=== PATIENT | female | born 1945 | race Caucasian/White ===

== ENCOUNTER 2024-05-10 05:48 | Day surgery (SDC) | payer MEDICARE, OTHER ==
[2024-05-04 10:31] VITALS: BP 128/69
[~2024-05-10] VITALS: Ht 172.7 cm; Wt 60.0 kg
[~2024-05-10 05:48] MED LIST: K2 PLUS D3 TAB1 EACH PO; KLAYESTA15 GM TOP; LACTATED RINGER'S 1,000 ML IV SCH; LEVOTHYROXINE75 MCG PO; LORAZEPAM0.5 MG PO; NYSTATIN15 GM TOP; SENOKOT8.6 MG PO; TRAZODONE HCL50 MG PO
[2024-05-10 06:00] VITALS: BP 141/76
[2024-05-10] MEDS ORDERED: BUPIVACAINE HCL 0.25% 50 ML MDV ONE (06:47)
[2024-05-10] MEDS ORDERED: IBLOOD GLUCOSE TEST STRIP 1 EA TEST VI PRN ×2 (07:00→07:45)
[2024-05-10] MEDS ORDERED: CEFAZOLIN SODIUM 2 GM/20 ML SYR IV SCH (07:00)
[2024-05-10] MEDS ORDERED: LIDOCAINE HCL 1% 5 ML SDV INJ ONE (07:00)
[2024-05-10] MEDS ORDERED: HEParin SOD (PORCINE) 5,000 UNIT/ML SDV SUB-Q SCH (07:00)
[2024-05-10] MEDS ORDERED: fentaNYL citrate 100 MCG/2 ML VIAL ONE (07:24)
[2024-05-10] MEDS ORDERED: propofoL 200 MG/20 ML VIAL ONE (07:24)
[2024-05-10] MEDS ORDERED: LIDOCAINE HCL 2% 5 ML SDV ONE (07:24)
[2024-05-10] MEDS ORDERED: ondansetron HCL 4 MG/2 ML VIAL ONE (07:24)
[2024-05-10] MEDS ORDERED: fentaNYL citrate 50 MCG/ML SDV IV PRN (07:45)
[2024-05-10] MEDS ORDERED: ondansetron HCL 4 MG/2 ML VIAL IV PRN (07:45)
[2024-05-10] MEDS ORDERED: NALOXONE HCL 0.4 MG SYR IV PRN ×2 (07:45→08:45)
--- NOTE | 2024-05-10 08:43 | NUR ---
05/10/24 0843 Amy Wahl 0822 PT ARRIVED TO PACU ON 6L VIA MASK, RESP EVEN AND UNLABORED. 0839 PT WOKE AND SAT UP IN BED, RN REORIENTING PT TO PACU. O2 MASK REMOVED. PT DENIES PAIN AND NAUSEA. PT MOVING LEG AND REPROT FULL FEELING IN LEFT FOOT AND LEG BUT NO PAIN.
[2024-05-10] MEDS ORDERED: ACETAMINOPHEN 500 MG TAB PO PRN (08:45)
[2024-05-10] MEDS ORDERED: HYDROCODONE/ACETA 5/325 TAB PO PRN (08:45)
[2024-05-10] MEDS ORDERED: IBUPROFEN 600 MG TAB PO PRN (08:45)
[2024-05-10] MEDS ORDERED: LACTATED RINGER'S 1,000 ML IV SCH (08:45)
[2024-05-10] MEDS ORDERED: HYDROCODON-ACE1 EA10 PO (08:50)
[2024-05-10] MEDS ORDERED: ACETAMINOPHEN500 MG PO (08:50)
[2024-05-10 09:19] VITALS: BP 116/98
--- NOTE | 2024-05-10 09:29 | NUR ---
Patient returns to room 11 from PACU. Report taken from DAVID Reyes. Patient is awake and talking. She is reporting 5/10 pain to the surgical site. Denies any nausea/vomiting at this time. Water and pudding provided to patient. Vital signs obtained. Pedal pulse strong to left foot. I went over the expectations for the next hour and both the patient and her daughter expressed understanding. Dressing in place to left lower leg. Call light within reach, bed in lowest position. NO needs stated at this time
--- NOTE | 2024-05-10 09:42 | NUR ---
0942-PT RATES PAIN 5/10. PAIN MEDICATION GIVEN PER EMAR.
--- NOTE | 2024-05-10 10:31 | NUR ---
LE 1031-PT RATES PAIN 08/09. PAIN MEDICATION GIVEN PER EMAR. LE 1033-PT LAYING IN BED WATCHING TV. RESP EVEN AND UNLABORED. PT IS DRINKING WATER. DAUGHTER AT BEDSIDE. CALL LIGHT WITHIN REACH. LE 1039-VO PER DR. LEWIS FOR IV TYLENOL. LE 1055-PAIN MEDICATION GIVEN PER EMAR.
[2024-05-10 10:32] VITALS: BP 129/57
[2024-05-10] MEDS ORDERED: ACETAMINOPHEN 1,000 MG/100 ML VIAL IV ONE (10:45)
[2024-05-10 11:12] VITALS: BP 133/82
[2024-05-10] MEDS ORDERED: SEVOFLURANE 250 ML BTL INH ONE (11:13)
--- NOTE | 2024-05-10 11:30 | NUR ---
1125- Patient is dressed at this time. Discharge instructions were reviewed in detail with both the patient and her daughter Betty. All questions were answered and they both expressed understanding of all instructions. Patient was discharged via wheelchair where her daughter is to take her home.
--- NOTE | 2024-05-10 13:16 | OR ---
[facility] [address] [place], [place] [address] Signed DATE OF OPERATION: 05/10/2024 SURGEON: Essie Lewis MD PREOPERATIVE DIAGNOSES: 1. 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 2. Frailty. 3. Dementia. POSTOPERATIVE DIAGNOSES: 1. 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 2. Frailty. 3. Dementia. PROCEDURE: Excision of left lower leg squamous cell carcinoma, 9 cm x 4 cm with primary closure. ANESTHESIA: General LMA; Maxine Mustafa CRNA INDICATIONS FOR THE PROCEDURE: This 78-year-old white woman is a patient of Dr. Lechuga and is noted to have a biopsy-proven left lower extremity squamous cell carcinoma of the anterior smith area. She has had progressive dementia, now living in [facility] and generally getting along well otherwise. She underwent lesion biopsy by Dr. Ruiz confirming squamous cell carcinoma, well differentiated with cells extending to the deep surgical margin. Resection has been recommended. The risk of bleeding, infection, need for allowed for closure including skin grafting and so forth have been reviewed with the patient and her daughter. They understand this, they wished to proceed. FINDINGS: An incrusted exuberant central necrotic area associated with the lesion was noted. There is scaly erythema at the base of the lesion that extended medially. Uncertain as to the true negative margin. Wide resection was undertaken within the limits of probable successful primary closure. Closure was undertaken with interrupted suture allowing for viability of both medial and lateral flap areas. Final pathology is pending of course. DESCRIPTION OF PROCEDURE: The patient was brought to the operating room, given a general LMA type anesthetic. Electronically Signed By: ESSIE LEWIS MD 05/10/24 1316 PATIENT NAME: MANNY PALACIOS OPERATIVE REPORT DATE OF : 41 REPORT #: [id number] PHYSICIAN: ESSIE LEWIS MD PCP: NICK LECHUGA MD REPORT IS CONFIDENTIAL AND NOT TO BE RELEASED WITHOUT AUTHORIZATION [facility] [address], [place] [address] Signed Preoperative antibiotic Ancef was given. Lower extremity was prepared with a chlorhexidine solution and draped sterilely. The area in question was marked. The lesion which had encrusting material 2 cm in length was associated with scaly erythema at the base. A long resection oriented vertically to allow incorporation of medial and lateral erythematous tissue was designed. Elliptical incision was undertaken dissection full thickness through the skin noting the anterior tibial bone. Resection was completed in the medial aspect with electrocautery. Hemostasis was assured with electrocautery. Sequential closure of the wound was undertaken with interrupted 2-0 nylon in a horizontal mattress configuration. The central portion had the most tension though did allow for reapproximation of the skin edges. The skin in this area was friable, though appears to be viable. An Acticoat dressing was applied as was an Edwardo wrap. The patient was extubated and transferred to the recovery room in good condition. The excision specimen was 9 cm in length and 4 cm in width. MD CIERA Rodrigues/THOM /[id number] cc: Dr. Carlton Ruiz Copies: ~ Electronically Signed By: ESSIE LEWIS MD 05/10/24 1316 PATIENT NAME: MANNY PALACIOS OPERATIVE REPORT DATE OF : 41 REPORT #: [id number] PHYSICIAN: ESSIE LEWIS MD PCP: NICK LECHUGA MD REPORT IS CONFIDENTIAL AND NOT TO BE RELEASED WITHOUT AUTHORIZATION
--- NOTE | 2024-05-10 13:36 | NUR ---
1114-PT STATES PAIN IS MUCH BETTER. PT IS READY TO GO HOME. PT WILL GET DRESSED WTIH DAUGHTER IN ROOM. CALL LIGHT WITHIN REACH.
--- NOTE | 2024-05-13 16:19 | PATH ---
[facility] [address] [place], [place] [address] Signed SPECIMEN(S): A LEFT MID ANTERIOR LOWER EXTREMITY SPECIMEN SOURCE: A. LEFT MID ANTERIOR LOWER EXTREMITY CLINICAL HISTORY: Squamous cell carcinoma FINAL PATHOLOGIC DIAGNOSIS: Left mid anterior lower extremity, skin, excision: - Invasive well-differentiated squamous cell carcinoma. - Tumor dimension: 3.1 x 2.1 cm. - Depth of tumor invasion: Approximately 4 mm. - Deep surgical margins: Free of tumor. - Peripheral surgical margins: Free of invasive tumor. JVR:jake MICROSCOPIC EXAMINATION: Histologic sections of all submitted blocks are examined by light microscopy. These findings, together with the gross examination, support the pathologic diagnosis. GROSS DESCRIPTION: The specimen, labeled and designated "Tammy Palacios, left mid anterior lower extremity squamous cell carcinoma per requisition," is received in formalin and consists of a 7 x 3.4 cm portion of skin excised to depth of 0.2 cm. The specimen is oriented as follows: Short stitchsuperior (subsequently designated 12:00), long stitchlateral (subsequently designated 3:00), the specimen is gallardo with a 3.1 x 2.1 cm scabbed lesion that is 0.6 cm away from the 3:00 margin, 0.9 cm away from the 9:00 margin and greater than 2 cm away from the 12 and 6:00 margin. There is a linear 2.3 cm skin deficit extending from the lesion to the 12:00 aspect. The specimen is subsequently inked as follows: 12-3 o'clock blue, 3-6 o'clock orange, 6-9-12 o'clock black. The specimen is serially section revealing no additional lesions. Specimen is entirely submitted as follows: Cassette Summary: (A1) distal tips (A2) 12:00 half (A3-A5) lesion (A6-A7) 6:00 half PATIENT NAME: MANNY PALACIOS PATHOLOGY DATE OF : 41 REPORT #: [id number] PHYSICIAN: DAVIAN PATHOLOGY PCP: NICK LECHUGA MD REPORT IS CONFIDENTIAL AND NOT TO BE RELEASED WITHOUT AUTHORIZATION [facility] [address] [place] [id number] Signed AA (under the direct supervision of a pathologist) The Gross Description was prepared using a voice recognition system. The report was reviewed for accuracy; however, sound-alike word errors, addition and/or deletions may occur. If there is any question about this report, please contact Client Services. PERFORMING LABORATORY: Technical component was performed by [facility], [address] [place] [id number] (CLIA# [id number]). Professional interpretation was performed by [facility] - [facility], [address] [place] [id number] (CLIA#: [id number]). Diagnostician: Portillo Jensen MD Pathologist Electronically Signed 05/13/2024 Copies: ~ PATIENT NAME: MANNY PALACIOS PATHOLOGY DATE OF : 41 REPORT #: [id number] PHYSICIAN: DAVIAN GALAVIZ PCP: NICK LECHUGA MD REPORT IS CONFIDENTIAL AND NOT TO BE RELEASED WITHOUT AUTHORIZATION
== END 2024-05-10 11:30 | disposition home or self-care (01) ==
LOC: DS 05:48
PROVIDERS: ATTEND Surgery
PROC: 0HBLXZZ Excision of Left Lower Leg Skin, External Approach (ICD-10-PCS; principal; 2024-05-10 07:30)
DX: C44.729 Squamous cell carcinoma of skin of left lower limb, including hip (principal); F03.90 Unspecified dementia, unspecified severity, without behavioral disturbance, psychotic disturbance, mood disturbance, and anxiety; E03.9 Hypothyroidism, unspecified; Z79.890 Hormone replacement therapy; Z79.899 Other long term (current) drug therapy
CPT/HCPCS: 00400; 88305; J0131; J0690; J1644; J2003; J2405; J2704; J3010